=== PATIENT | female | born 1930 | race Caucasian/White ===

== ENCOUNTER 2019-12-09 23:00 | Emergency (ER) | payer OTHER ==
--- NOTE | 2019-12-09 23:20 | EDPHYS ---
Physician Documentation [facility] Name: Adele Diaz Age: 89 yrs Sex: Female : 1930 Arrival Date: 12/09/2019 Time: 23:10 Bed 2 Private MD: ED Physician Wing White HPI: 12/08 23:13 This 89 yrs old Female presents to ER via Unassigned with complaints of CPR. octavia 23:13 Preceding the arrest, the patient collapsed. The arrest occurred at home. Pre-hospital octavia course: The arrest was not witnessed by others. Bystanders at the scene did not perform CPR. EMS care prior to arrival: initiation of ACLS, peripheral IV, intubation was successfully performed, oxygen, 100% by ET tube. Time elapsed prior to ACLS is unknown. ACLS details: Initial rhythm was asystole. The presenting rhythm is asystole. Airway: oral intubation, Medications given by EMS prior to arrival - see fkow sheet. The patient has not experienced similar symptoms in the past. Historical: - Allergies: 23:13 Codeine; lp1 - PMHx: 23:13 bowel obstruction; elevated sodium level; sinus issue; lp1 - Family history:: not pertinent. ROS: 23:13 Unable to obtain ROS due to patient is on ventilator, cpr in progress. octavia Exam: 23:13 Cardiovascular: Rate: actual rate is 0 bpm, Rhythm: asystole, Pulses: not palpable, octavia Heart sounds: none, Edema: is not appreciated, JVD: is noted bilaterally, to the angle of the jaw. 23:13 Respiratory: Breath sounds: decreased breath sounds, that are moderate, equal. Vital Signs: 23:10 Pulse 0; Resp 0; Temp 98(R); Weight 40.82 kg; rr5 MDM: 23:13 Patient medically screened. octavia 23:17 Data reviewed: vital signs, nurses notes, EMS record. Data interpreted: Cardiac octavia monitor: rate is 0 beats/min, rhythm is asystole, Pulse oximetry: is not applicable for this patient encounter. 23:17 Differential diagnosis: cardiac arrest, respiratory arrest, asphyxiation. ED course: no octavia pulse, no respiratons, glucose 33mg/dl, 25 gm giving. Administered Medications: No medications were administered Disposition: Patient pronounced on 12/09/19 23:01 by Wing White. Impression: Respiratory arrest, Cardiac arrest. - Released to Home. Signatures: Wing White MD MD cha Pena, Laura RN RN lp1 Noel Damon RN RN rr5 Corrections: (The following items were deleted from the chart) 12/09 04:06 12/08 23:19 12/09/2019 23:19 Patient pronounced on 12/09/2019 at 23:01 by jaclyn White. Impression: Respiratory arrest; Cardiac arrest. Released to Home. octavia
--- NOTE | 2019-12-09 23:20 | ER ---
Nurse's Notes [facility] Name: Adele Diaz Age: 89 yrs Sex: Female : 1930 Arrival Date: 12/09/2019 Time: 23:10 Bed 2 Private MD: Diagnosis: Respiratory arrest;Cardiac arrest Presentation: 12/08 22:59 Care prior to arrival: IV initiated. 18 GA, Right EJ. Compressions began at 22:15. lp1 22:59 Acuity: DEIRDRE 1 lp1 22:59 Method Of Arrival: EMS: [facility] lp1 22:59 Chief complaint: EMS states: Called by patient's daughter who checked on patient and lp1 she was in bed, appeared to not be breathing; Daughter last saw patient an hour and a half before; Per EMS, patient warm, asystole rhythm; Epi x4 given, 45 mEq Bicarb; blood sugar of 33, given 25g of D10, blood sugar of 22; ETT 7.0, 24 at the teeth. 23:00 Ebola Screen: Unable to complete the Ebola screening because: Patient is unresponsive. ea Risk Assessment: Do you want to hurt yourself or someone else? Unable to obtain. Historical: - Allergies: 23:13 Codeine; lp1 - PMHx: 23:13 bowel obstruction; elevated sodium level; sinus issue; lp1 - Family history:: not pertinent. Screenin:10 Abuse screen: unable to obtain. Nutritional screening: unable to obtain. Tuberculosis rr5 screening: unable to obtain. Assessment: 23:01 Neuro: Level of Consciousness is unresponsive. Cardiovascular: Rhythm is asystole. rr5 23:01 General: in via EMS, intubated ongoing CPR. attached to monitor HR 0, RR 0 pulse rr5 checked no palpable pulse. assess and examined by ED provider with order to discontinue CPR. DOA at 2301H. Respiratory: Respiratory pattern is apnea. 23:10 General:. General: Pt arrived DOA. . Derm: Skin is mottled, pale. ea 23:32 CPR assessment: pale, Pt DOA. Cardiac rhythm is asystole. ea 23:53 Reassessment: Raimundo Sam from [employer] contacted #[phone]. ea 12/09 00:24 Reassessment: [employer] wolf inside the room. Cocoa Butter Filter Operator romana rangel came and sign the release rr5 form not for ME. ED provider and campground attendant claire talked to family member and explained the situation. the daughter of the patient awaiting for her brother to come for them to decide which home to go. 02:00 Reassessment: awaiting for [facility] staff to pick the rr5 patient's body. 04:00 Reassessment: [facility] staff came and took the body. rr5 undertaker form signed. Vital Signs: 12/08 23:10 Pulse 0; Resp 0; Temp 98(R); Weight 40.82 kg; rr5 ED Course: 23:10 Patient arrived in ED. cf2 23:13 Wing White MD is Attending Physician. [facility] 23:18 Triage completed. lp1 23:18 Wing White MD is Pronouncing Provider. [facility] 23:18 Arm band placed on. lp1 23:24 Noel Damon RN is Primary Nurse. rr5 Administered Medications: No medications were administered Outcome: 23:01 Condition: rr5 12/09 04:05 Patient : Time of 23:01 Pronounced by Wing White MD Body to rr5 home. 04:06 Patient left the ED. rr5 Signatures: Wing White MD MD cha Pena, Laura, RN RN lp1 Breanna Biggs RN GAUDENCIO Noel Damon, RN RN rr5 Jessica Aranda cf2 Corrections: (The following items were deleted from the chart) 12/08 23:22 23:16 Compressions began at 22:15. lp1 lp1 23: 23:16 Care prior to arrival: IV initiated. 18 GA, Right EJ lp1 lp1 23: 23:16 Acuity: DEIRDRE 1 lp1 lp1 23: 23:16 Method Of Arrival: EMS: [facility] 1 1
[2019-12-10 04:24] VITALS: TEMP 98
== END 2019-12-10 04:06 | disposition expired ==
LOC: ER 23:00
DX: I46.9 Cardiac arrest, cause unspecified (principal); Z88.5 Allergy status to narcotic agent
CPT/HCPCS: 92950; 99285